=== PATIENT | male | born 1980 ===

== ENCOUNTER 2018-02-14 06:18 | Emergency (ER) | payer OTHER ==
[2018-02-14 06:33] VITALS: BMI 30.8
[2018-02-14 06:36] VITALS: RESP 18
[2018-02-14 07:00] LABS: URINE BILIRUBIN NEGATIVE (NEGATIVE); URINE BLOOD NEGATIVE (NEGATIVE); URINE CLARITY Clear (Clear); URINE COLOR Yellow (YELLOW); URINE GLUCOSE (UA) NORMAL (Normal); URINE LEUKOCYTE ESTERASE NEG Leu/uL (Negative); URINE PROTEIN NEGATIVE (NEGATIVE); URINE UROBILINOGEN NORMAL mg/dL (0.2-1.0)
--- NOTE | 2018-02-14 07:31 | C.PDOC ---
History Of Present Illness 37 y/o male with no pmh c/o swelling to penis x 2 days after sexual relations with . pt c/o swelling and itching to foreskin. denies abdominal pain, n/v/d , fever and chills. no penile discharge, no pain or swelling to testes or scrotum. Time Seen by Provider: 02/14/18 06:56 Chief Complaint (Nursing): Male Genitourinary History Per: Patient History/Exam Limitations: no limitations Onset/Duration Of Symptoms: Days (2) Current Symptoms Are (Timing): Still Present Severity: Moderate Quality Of Discomfort: Other (itching) Associated Symptoms: denies: Fever, Chills, Nausea, Vomiting, Diarrhea, Urinary Symptoms Past Medical History Reviewed: Historical Data, Nursing Documentation, Vital Signs Vital Signs: Last Vital Signs Temp 98.0 F 02/14/18 06:33 Pulse 89 02/14/18 06:33 Resp 18 02/14/18 06:33 BP 121/84 02/14/18 06:33 Pulse Ox 96 02/14/18 07:35 - Medical History PMH: Bronchitis, Hypercholesterolemia Family History: States: Unknown Family Hx - Social History Hx Tobacco Use: No Hx Alcohol Use: No Hx Substance Use: No - Immunization History Hx Tetanus Toxoid Vaccination: No Hx Influenza Vaccination: No Hx Pneumococcal Vaccination: No Review Of Systems Constitutional: Negative for: Fever, Chills Gastrointestinal: Negative for: Nausea, Vomiting, Abdominal Pain, Diarrhea Genitourinary: Positive for: Other (foreskin swelling). Negative for: Dysuria, Frequency, Penile Discharge Skin: Negative for: Lesions Physical Exam - Physical Exam Appears: Non-toxic, No Acute Distress Skin: Warm, Dry Gastrointestinal/Abdominal: Bowel Sounds, Soft, No Tenderness, No Distention, No Guarding, No Rebound Male Genital: No Normal Inspection, No Testicular Tenderness, No Testicular Swelling, No Scrotal Swelling, No Circumcised, Other (swollen foreskin with erythema to head of penis; foreskin easily retractable. no discharge noted. chaperoned by YOLA Mccracken. ) Neurological/Psych: Oriented x3, Normal Speech, Normal Cognition ED Course And Treatment O2 Sat by Pulse Oximetry: 96 Medical Decision Making Medical Decision Making: pt with swollen foreskin and erythematous head to penis, able to easily retract and slide back into place. ua neg. will tx for balanits with metronidazone and clotrimazole. Disposition Counseled Patient/Family Regarding: Studies Performed, Diagnosis, Need For Followup, Rx Given - Disposition Referrals: Bacilio Raymundo Jr., MD [Staff Provider] - Disposition: HOME/ ROUTINE Disposition Time: 08:26 Condition: GOOD Additional Instructions: Please use cream on penis and foreskin 2 times a day. Take oral medications as prescribed; do not drink any alcohol while taking this medication. Please follow up with urologistt in 1-=2 days. Retract foreskin daily, wash with gently soap and dry. Return right away to ER if you have any difficulty urinating. if your foreskin can not be easily slid up or unable to slide back into place. Recommend no sexual activity until resolved. Prescriptions: Clotrimazole 1% Cream [Lotrimin 1%] 1 applic TP BID #1 tube Metronidazole 500 mg PO BID #14 tablet Instructions: Balanitis (DC) Forms: Gen Discharge Inst Salvadorean, [facility] (Salvadorean) - Clinical Impression Clinical Impression: Balanitis
[2018-02-14 08:33] VITALS: BP 118/72; PULSE 84; TEMP 98.2
[2018-02-17 10:28] VITALS: O2SAT 96
== END 2018-02-14 08:38 | disposition home or self-care (01) ==
LOC: C.ER 06:18
DX: N48.1 Balanitis (principal); E78.00 Pure hypercholesterolemia, unspecified

== ENCOUNTER 2019-02-10 13:24 | Emergency (ER) | payer OTHER ==
[2019-02-10 13:24] VITALS: BMI 30.8
[2019-02-10 13:30] VITALS: O2SAT 98
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
[2019-02-10 16:33] VITALS: BP 127/74; PULSE 92; RESP 17; TEMP 98.5
--- NOTE | 2019-02-10 19:08 | RAD ---
Date of service: 02/10/2019 PROCEDURE: Cervical Spine Radiographs. HISTORY: Pain. COMPARISON: None available. TECHNIQUE: 3 views obtained. FINDINGS: BONES: Alignment maintained. No fracture. Dens Intact. DISC SPACES: Normal. SOFT TISSUES: Normal. No prevertebral soft tissue swelling. OTHER FINDINGS: None. IMPRESSION: No radiographic evidence of acute fracture or subluxation. Mild degenerative changes.
== END 2019-02-10 16:23 | disposition home or self-care (01) ==
LOC: C.ER 13:24
DX: S16.1XXA Strain of muscle, fascia and tendon at neck level, initial encounter (principal); V49.9XXA Car occupant (driver) (passenger) injured in unspecified traffic accident, initial encounter